=== PATIENT | male | born 1995 | race Two or more races ===

== ENCOUNTER 2022-03-24 05:05 | Day surgery (SDC) | payer OTHER ==
[~2022-03-24] VITALS: Ht 172.7 cm; Wt 86.2 kg
[2022-03-24] MEDS ORDERED: PERCOCET 5-3251 EACH PO (09:01)
== END 2022-03-24 14:15 | disposition home or self-care (01) ==
LOC: CIR.AMB 05:05
PROVIDERS: ATTEND Surgery
DX: K60.3 Anal fistula (principal); Z20.822 Contact with and (suspected) exposure to COVID-19; J45.909 Unspecified asthma, uncomplicated

== ENCOUNTER 2022-04-21 17:14 | Emergency (ER) | payer OTHER ==
[~2022-04-21] VITALS: Ht 172.7 cm; Wt 81.6 kg
[~2022-04-21 17:14] MED LIST: PERCOCET 5-3251 EACH PO
[2022-04-21] MEDS ORDERED: METRONIDAZOLE500 MG PO (22:33)
[2022-04-21] MEDS ORDERED: CIPRO500 MG PO (22:33)
== END 2022-04-21 22:46 | disposition home or self-care (01) ==
LOC: ER 17:14
DX: K61.0 Anal abscess (principal); Z20.822 Contact with and (suspected) exposure to COVID-19

== ENCOUNTER 2022-09-15 05:30 | Day surgery (SDC) | payer OTHER ==
[~2022-09-15] VITALS: Ht 172.7 cm; Wt 86.2 kg
[~2022-09-15 05:30] MED LIST changes: +CIPRO500 MG PO; +METRONIDAZOLE500 MG PO
[2022-09-15] MEDS ORDERED: OXYC1TAB9 PO (09:31)
== END 2022-09-15 13:10 | disposition home or self-care (01) ==
LOC: CIR.AMB 05:30
PROVIDERS: ATTEND Surgery
DX: K60.3 Anal fistula (principal); K62.89 Other specified diseases of anus and rectum; Z20.822 Contact with and (suspected) exposure to COVID-19

== ENCOUNTER 2023-02-10 05:00 | Day surgery (SDC) | payer OTHER ==
[~2023-02-10] VITALS: Ht 167.6 cm; Wt 88.5 kg
[~2023-02-10 05:00] MED LIST changes: +OXYC1TAB9 PO
[2023-02-10] MEDS ORDERED: OXYC1TAB9 PO (12:31)
== END 2023-02-10 15:20 | disposition home or self-care (01) ==
LOC: CIR.AMB 05:00
PROVIDERS: ATTEND Surgery
DX: K60.3 Anal fistula (principal); Z20.822 Contact with and (suspected) exposure to COVID-19; K62.89 Other specified diseases of anus and rectum